=== PATIENT | male | born 1950 | race American Indian/Alaskan Native ===

== ENCOUNTER 2018-03-17 10:27 | Observation (INO) | payer MEDICARE, OTHER ==
--- NOTE | 2018-03-15 10:52 | Anesthesia Consultation ---
Anesthesia Consult and Med Hx Date of service: 03/15/18 - Airway Anesthetic Teeth Evaluation: Good ROM Head & Neck: Adequate Mental/Hyoid Distance: Adequate Mallampati Class: Class II Intubation Access Assessment: Probably Good - Pulmonary Exam CTA: Yes - Cardiac Exam Cardiac Exam: RRR - Pre-Operative Health Status ASA Pre-Surgery Classification: ASA2 Proposed Anesthetic Plan: General (GA with ETT- GERD poorly controlled) - Pulmonary Hx Smoking: No Hx Sleep Apnea: No (KYLEE PRE SCREEN HIGH RISK) - Cardiovascular System Hx Hypertension: Yes (X 15 YRS) - Central Nervous System Hx Back Pain: Yes
[2018-03-15 10:59] LABS: Basophils % (Auto) 0.4 % (0.0-1.8); Eosinophils # (Auto) 0.1 K/mm3 (0.0-0.4); Eosinophils % (Auto) 1.7 % (0.0-4.3); Hematocrit 38.4 % (35.5-45.6); Hemoglobin 13.1 gm/dl (11.8-15.2); Lymphocytes # (Auto) 1.7 K/mm3 (1.2-5.4); Lymphocytes % (Auto) 31.6 % (13.4-35.0); Mean Corpuscular HGB Conc 34 % (32-34); Mean Corpuscular Hemoglobin 32 pg (28-32); Mean Corpuscular Volume 94 fl (84-94); Monocytes # (Auto) 0.5 K/mm3 (0.0-0.8); Monocytes % (Auto) 9.4 % (0.0-7.3); Platelet Count 203 K/mm3 (140-440); Red Blood Count 4.08 M/mm3 (3.65-5.03); Red Cell Distribution Width 13.5 % (13.2-15.2)
[2018-03-15 11:09] LABS: Partial Thromboplastin Time 27.9 Sec. (24.2-36.6)
[2018-03-15 11:13] LABS: INR 0.95 (0.87-1.13)
[2018-03-15 11:18] LABS: Alanine Aminotransferase 18 units/L (7-56); Albumin 4.2 g/dL (3.9-5); BUN/Creatinine Ratio 12; Blood Urea Nitrogen 15 mg/dL (9-20); Calcium 9.6 mg/dL (8.4-10.2); Hemolysis Index 9
[~2018-03-17 10:27] MED LIST: GARAMYCIN/NS 80 MG/100 ML 100 ML IV SCH; LACTATED RINGERS 1,000 ML IV SCH; PEPCID IV NR; VANCOMYCIN PHARMACY TO DOSE IV SCH; VANCOMYCIN/NS 1 GM/250 ML 1 GM/250 ML BAG IV SCH; VERSED IV NR
[2018-03-17] MEDS ORDERED: NACL BACTERIOSTATIC INFILTRATI ONE (12:01)
[2018-03-17] MEDS ORDERED: VANCOMYCIN VIAL ONE (13:10)
[2018-03-17] MEDS ORDERED: GARAMYCIN ONE (13:11)
[2018-03-17] MEDS ORDERED: MARCAINE 0.5% 0 ML INFILTRATI ONE (13:11)
[2018-03-17] MEDS ORDERED: SUBLIMAZE ONE (13:11)
[2018-03-17] MEDS ORDERED: DIPRIVAN 10 MG/ML IV ONE (13:11)
[2018-03-17] MEDS ORDERED: XYLOCAINE MPF 2% ONE (13:11)
[2018-03-17] MEDS ORDERED: NEOSPORIN GU IR ONE ×2 (13:11→14:39)
[2018-03-17] MEDS ORDERED: NACL P/F VIAL (10 ML) 20 ML ONE (13:36)
[2018-03-17] MEDS ORDERED: ZEMURON IV ONE (13:44)
[2018-03-17] MEDS ORDERED: QUELICIN ONE (13:44)
[2018-03-17] MEDS ORDERED: VANCOMYCIN VIAL IRRIGATION ONE (14:22)
[2018-03-17] MEDS ORDERED: HYDROGEN PEROXIDE ONE (14:22)
[2018-03-17] MEDS ORDERED: HYDROGEN PEROXIDE IRRIGATION ONE (14:22)
[2018-03-17] MEDS ORDERED: GARAMYCIN IV ONE (14:22)
[2018-03-17] MEDS ORDERED: DILAUDID ONE ×2 (14:37→15:45)
[2018-03-17] MEDS ORDERED: DECADRON ONE (14:39)
[2018-03-17] MEDS ORDERED: ZOFRAN ONE (14:39)
[2018-03-17] MEDS ORDERED: NACL 0.9% IR ONE (14:39)
[2018-03-17] MEDS ORDERED: NARCAN 0.4 MG/1 ML IV PRN (15:18)
[2018-03-17] MEDS ORDERED: NORCO 5/325 PO PRN (15:18)
[2018-03-17] MEDS ORDERED: MORPHINE IV PRN (15:18)
[2018-03-17] MEDS ORDERED: ZOFRAN IV PRN ×2 (15:18→15:46)
--- NOTE | 2018-03-17 15:18 | Short Stay Summary ---
Short Stay Documentation Date of service: 03/17/18 - History H&P: obtained from office - Allergies and Medications Current Medications: Allergies No Known Allergies Allergy (Verified 03/05/18 14:15) Home Medications Medication Instructions Recorded Confirmed Last Taken Type Bicalutamide [Casodex] 50 mg PO DAILY 03/05/18 03/17/18 03/17/18 07:00 History Leuprolide Acetate [Eligard] 22.5 mg SQ [id number] 03/05/18 03/17/18 03/03/18 History Losartan [Cozaar] 50 mg PO QDAY 03/05/18 03/17/18 03/17/18 07:00 History NIFEdipine [Adalat cc] 30 mg PO DAILY 03/05/18 03/17/18 03/17/18 07:00 History Sulfamethoxazole/Trimethoprim 1 each PO BID 03/17/18 03/17/18 03/17/18 07:00 History [Bactrim DS TAB] Active Medications Famotidine (Pepcid) 20 mg IV PREOP NR Stop: 03/17/18 23:59 Last Admin: 03/17/18 12:15 Dose: 20 mg Gentamicin Sulfate/Sodium Chloride (Garamycin/Ns 80 Mg/100 Ml) 100 mls @ 200 mls/hr IV PREOP ARLET Vancomycin HCl (Vancomycin/Ns 1 Gm/250 Ml) 1 gm in 250 mls @ 166.667 mls/hr IV PREOP ARLET Stop: 03/17/18 23:59 Last Admin: 03/17/18 12:36 Dose: 166.667 mls/hr Lactated Ringer's (Lactated Ringers) 1,000 mls @ 100 mls/hr IV DIRECT ARLET Last Admin: 03/17/18 12:10 Dose: 100 mls/hr Midazolam HCl (Versed) 2 mg IV PREOP NR Stop: 03/17/18 23:59 - Brief post op/procedure progress note Date of procedure: 03/17/18 Pre-op diagnosis: mal fx ipp (leak), ED Post-op diagnosis: same Procedure: ipp (21 + 2cm RTE), scrotaplasty Anesthesia: GETA Surgeon: JOSIANE GOODE Medical Device: SOURAV POLLACK Estimated blood loss: minimal Pathology: list (scrotal skin, old ambicor) Specimen disposition: to lab Condition: stable - Hospital course Hospital course: post op info on chart pt has cipro & norco at home - Disposition Condition at discharge: Stable Disposition: DC-01 TO HOME OR SELFCARE Short Stay Discharge Plan Follow up with: PRANAY MERAZ MD [Primary Care Provider] - 7 Days
[2018-03-17] MEDS ORDERED: TORADOL ONE (15:45)
[2018-03-17] MEDS ORDERED: TORADOL IV PRN (15:46)
[2018-03-17] MEDS ORDERED: DEMEROL IV PRN (15:46)
[2018-03-17] MEDS ORDERED: DILAUDID IV PRN (15:46)
--- NOTE | 2018-03-17 15:49 | Post Anesthesia Evaluation ---
- Post Anesthesia Evaluation Patient Participated: Yes Airway Patent: Yes Stable Respiratory Function: Yes Nausea/Vomiting: No Temp > 96.8F: Yes Pain Manageable: Yes Adequeate Hydration: Yes Anesthesia Complications: No
--- NOTE | 2018-03-17 15:49 | Anesthesia Day of Surgery ---
Anesthesia Day of Surgery - Day of Surgery Patient Examined: Yes Patient H&P Reviewed: Yes Patient is NPO: Yes
[2018-03-17] MEDS ORDERED: LACTATED RINGERS 1,000 ML IV SCH (16:00)
--- NOTE | 2018-03-17 19:25 | Operative Report ---
PREOPERATIVE DIAGNOSES: Erectile dysfunction, malfunction of inflatable penile prosthesis (Ambicor). POSTOPERATIVE DIAGNOSES: Erectile dysfunction, malfunction of inflatable penile prosthesis (Ambicor), redundant scrotal skin. PROCEDURE: Removal of Ambicor penile prosthesis, insertion of inflatable penile prosthesis (CX 21 cm +2 cm rear tip extenders), scrotoplasty, Alis irrigation. SURGEON: Denis Gardiner MD PARKING MANAGER: Junaid Amador. ANESTHESIA: General. ESTIMATED BLOOD LOSS: Minimal. FLUIDS: Crystalloid. COMPLICATIONS: No complications. INDICATIONS: This patient is a 67-year-old gentleman known to my service with a history of prostate cancer status post perineal prostatectomy [place] [address] Ronald Crawford at [facility]. The patient had seen several physicians in the past. I have been following him over the last several years. He is presently on hormone therapy for prostate cancer. The patient had inflatable penile prosthesis placed (Ambicor type), was working well for 11 years and the patient had noted it stopped working. 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 Discussed the options. The patient wants to proceed with removal of Ambicor and replacement with a 3 piece device. DESCRIPTION OF PROCEDURE: The patient was taken to the operative suite, placed in a supine position. After adequate general anesthesia, the patient was prepped and draped in a sterile fashion. Junaid Amador was present throughout the procedure to help with surgical dissection. Ga catheter was placed on the operative field. A transscrotal incision was made with Bovie. [place] retractor was used for exposure. Dissection in the scrotum exposed the pump. No signs of infection; however, anaerobic and aerobic cultures were taken. Dissection was then taken to the corporal bodies, left side and the right side respectively. They were open. No signs of infection. The device was removed intact and the device was sent to the lab for ID confirmation. Measurements revealed a total of 23 cm; therefore, a 21 cm CX device was used, AMS device, with 2 cm rear tip extenders. Before placement of the device, a modified Alis irrigation was performed without difficulty. No signs of infection could be appreciated. A 100 mL reservoir was prepped and placed in the retropubic space via the right external ring. It was inflated with 100 mL of saline with minimal back pressure. The cylinders were placed in the corporal bodies with the aid of a Herberth needle. Also, of note, prior to touching the device, everyone on the surgical field changed the gloves. The cylinders were placed in the corporal bodies with the aid of a Herberth needle, adequate seating could be appreciated. Corporotomies were closed with 2-0 Vicryl in a running fashion. Insufflation revealed adequate erection, the reservoir and pump were connected with a quick-click connection device, again cycled with an excellent appearance. The pump was then placed in the dependent portion of the scrotum. Pursestring 2-0 Vicryl suture was placed on a running 2-0 Vicryl to close the dartos layer. Redundant scrotal skin was trimmed at the top and bottom. Skin closure with 3-0 Vicryl in interrupted fashion was performed. Collodion was placed, mummy wrap as well. The patient tolerated the procedure, was extubated and taken to recovery room. The patient has his antibiotics and pain pills, will be observed overnight and go home tomorrow. JOB# [id number] Tadeo/JESSE
--- NOTE | 2018-03-17 21:02 | Consultation ---
History of Present Illness - Reason for Consult Consult date: 03/17/18 Medical management Requesting physician: JOSIANE GOODE - History of Present Illness S/p repair of IPP leak and malfunctioning IPP. Had prostectomy in the past sec to Prostate cancer.Postop patient doing well.No sob erc. Past History Past Medical History: cancer (prostate), hyperthyroidism Past Surgical History: Other (Prostectomy and IPP placement) Social history: no significant social history, , lives with family, full code Family history: hypertension Medications and Allergies Allergies Allergy/AdvReac Type Severity Reaction Status Date / Time No Known Allergies Allergy Verified 03/05/18 14:15 Home Medications Medication Instructions Recorded Confirmed Last Taken Type Bicalutamide [Casodex] 50 mg PO DAILY 03/05/18 03/17/18 03/17/18 07:00 History Leuprolide Acetate [Eligard] 22.5 mg SQ [id number] 03/05/18 03/17/18 03/03/18 History Losartan [Cozaar] 50 mg PO QDAY 03/05/18 03/17/18 03/17/18 07:00 History NIFEdipine [Adalat cc] 30 mg PO DAILY 03/05/18 03/17/18 03/17/18 07:00 History Sulfamethoxazole/Trimethoprim 1 each PO BID 03/17/18 03/17/18 03/17/18 07:00 History [Bactrim DS TAB] Active Meds: Active Medications Acetaminophen/Hydrocodone Bitart ([place] 5/325) 2 each PO Q6H PRN PRN Reason: Pain, Moderate (4-6) Bicalutamide (Casodex) 50 mg PO DAILY ARLET Famotidine (Pepcid) 20 mg IV PREOP NR Stop: 03/17/18 23:59 Last Admin: 03/17/18 12:15 Dose: 20 mg Hydromorphone HCl (Dilaudid) 0.5 mg IV Q10MIN PRN PRN Reason: Pain , Severe (7-10) Stop: 03/18/18 06:00 Gentamicin Sulfate/Sodium Chloride (Garamycin/Ns 80 Mg/100 Ml) 100 mls @ 200 mls/hr IV PREOP ARLET Vancomycin HCl (Vancomycin/Ns 1 Gm/250 Ml) 1 gm in 250 mls @ 166.667 mls/hr IV PREOP ARLET Stop: 03/17/18 23:59 Last Admin: 03/17/18 12:36 Dose: 166.667 mls/hr Cefazolin Sodium (Ancef/Ns 1 Gm/50 Ml) 1 gm in 50 mls @ 100 mls/hr IV Q8H [facility]; Protocol Stop: 03/18/18 02:29 Lactated Ringer's (Lactated Ringers) 1,000 mls @ 100 mls/hr IV DIRECT ARLET Losartan Potassium (Cozaar) 50 mg PO QDAY ARLET Meperidine HCl (Demerol) 25 mg IV ONCE PRN PRN Reason: Shivering Midazolam HCl (Versed) 2 mg IV PREOP NR Stop: 03/17/18 23:59 Morphine Sulfate (Morphine) 2 mg IV Q4H PRN PRN Reason: Pain, Moderate (4-6) Naloxone HCl (Narcan 0.4 Mg/1 Ml) 0.1 mg IV Q2MIN PRN PRN Reason: Res Rate </= 8 or 02 SAT < 92% Nifedipine (Procardia Xl) 30 mg PO QDAY ARLET Ondansetron HCl (Zofran) 4 mg IV Q8H PRN PRN Reason: N/V unrelieved by Reglan Ondansetron HCl (Zofran) 4 mg IV ONCE PRN PRN Reason: Nausea And Vomiting Review of Systems All systems: negative Exam - Constitutional Vitals: Temp Pulse Resp BP Pulse Ox 97.3 F L 78 20 131/79 98 03/17/18 20:19 03/17/18 20:19 03/17/18 20:19 03/17/18 20:19 03/17/18 20:19 General appearance: Present: no acute distress, well-nourished - EENT Eyes: Present: PERRL ENT: hearing intact, clear oral mucosa - Neck Neck: Present: supple, normal ROM - Respiratory Respiratory effort: normal Respiratory: bilateral: CTA - Cardiovascular Heart Sounds: Present: S1 & S2. Absent: rub, click - Extremities Extremities: pulses symmetrical, No edema Peripheral Pulses: within normal limits - Abdominal General gastrointestinal: Present: soft, non-tender, non-distended, normal bowel sounds Male genitourinary: Present: normal - Integumentary Integumentary: Present: clear, warm, dry - Musculoskeletal Musculoskeletal: gait normal, strength equal bilaterally - Psychiatric Psychiatric: appropriate mood/affect, intact judgment & insight - Neurologic Neurologic: CNII-XII intact, moves all extremities Results - Labs CBC & Chem 7: 03/15/18 10:00 03/15/18 10:00 Assessment and Plan - Patient Problems (1) Status post surgery Current Visit: Yes Status: Acute Plan to address problem: Repair of Malfunctioning IPP and a leak (2) HTN (hypertension) Current Visit: Yes Status: Chronic Qualifiers: Hypertension type: essential hypertension Qualified Code(s): I10 - Essential (primary) hypertension Plan to address problem: Cont Losartan and Nifedipine (3) Prostate cancer Current Visit: Yes Status: Chronic Plan to address problem: Cont Casodex and Leuprolide as per schedule (4) DVT prophylaxis Current Visit: Yes Status: Acute Plan to address problem: On Scd's
[2018-03-17] MEDS: ANCEF/NS 1 GM/50 ML 1 GM/50 ML BAG IV SCH (21:17)
[2018-03-18] MEDS: ANCEF/NS 1 GM/50 ML 1 GM/50 ML BAG IV SCH (04:50)
[2018-03-18] MEDS ORDERED: CASODEX PO SCH (10:00)
[2018-03-18] MEDS ORDERED: COZAAR PO SCH (10:00)
[2018-03-18] MEDS ORDERED: NIFEDIPINE 30 MG PO SCH (10:00)
[2018-03-18] MEDS ORDERED: PROCARDIA XL PO SCH (10:00)
--- NOTE | 2018-03-18 12:27 | Progress Note ---
Assessment and Plan post ipp small bleeding incision after dressing removed pressure miguel out recheck Subjective Date of service: 03/18/18 Principal diagnosis: organic ED Objective - Constitutional Vitals: Vital Signs - 12hr 03/18/18 03/18/18 03/18/18 00:54 04:07 08:17 Temperature 98.1 F 98.1 F 98.1 F Pulse Rate 65 57 L 69 Respiratory 18 20 18 Rate Blood Pressure 122/73 113/63 124/67 O2 Sat by Pulse 96 98 93 Oximetry 03/18/18 11:00 Temperature Pulse Rate 70 Respiratory Rate Blood Pressure 124/67 O2 Sat by Pulse Oximetry General appearance: Present: no acute distress Extremities: no ischemia - Gastrointestinal General gastrointestinal: Present: soft, non-tender - Genitourinary Male genitourinary: symmetrical - Labs CBC & Chem 7: 03/15/18 10:00 03/15/18 10:00
--- NOTE | 2018-03-18 12:28 | Discharge Summary ---
Short Stay Discharge Plan Activity: other (no straining ) Weight Bearing Status: Full Weight Bearing Diet: low fat, low cholesterol, low salt Wound: open to air Follow up with: PRANAY MERAZ MD [Primary Care Provider] - 7 Days
[2018-03-18 12:51] VITALS: BP 128/62
--- NOTE | 2018-03-18 13:34 | Progress Note ---
Assessment and Plan no more heme voided x 2 Subjective Date of service: 03/18/18 Principal diagnosis: organic ED Objective - Constitutional Vitals: Vital Signs - 12hr 03/18/18 03/18/18 03/18/18 04:07 08:17 11:00 Temperature 98.1 F 98.1 F Pulse Rate 57 L 69 70 Respiratory 20 18 Rate Blood Pressure 113/63 124/67 124/67 O2 Sat by Pulse 98 93 Oximetry 03/18/18 12:20 Temperature 98.6 F Pulse Rate 69 Respiratory 18 Rate Blood Pressure 128/62 O2 Sat by Pulse 97 Oximetry - Labs CBC & Chem 7: 03/15/18 10:00 03/15/18 10:00
--- NOTE | 2018-03-18 22:44 | Progress Note ---
Assessment and Plan - Status post IPP repair of leaking and malfunctioning previously inserted IPP. - Had a history of prostate cancer with radical prostatectomy in the past Subjective Date of service: 03/18/18 Principal diagnosis: organic ED Interval history: No new complaints. Patient had repair of previous IPP)(implantable penile thoracentesis). Ga's catheter removed. Patient urinating adequately. Objective - Exam Narrative Exam: Constitutional: Well-nourished well-developed. In no distress Head: Normocephalic atraumatic Eyes: Pupils are equal round and reactive to light Nose: No enlarged turbinates, no septal deviation. Mouth: Moist mucous membranes. Neck: Supple no thyromegaly. No bruit. No JVD Heart: Regular rate and rhythm, S1-S2 abnormal. No rubs murmurs or gallop Lungs: Clear to auscultation bilaterally no rales or rhonchi Abdomen: Soft, nontender. Bowel sound are present. Extremities: No edema no cyanosis and no clubbing. Neuro: Alert oriented Oriented x3. No focal sensory or motor deficit. Skin: No rashes no hyperemic spots Genitourinary system: Dry dressing of the penile implant Psychiatry: Euthymic. Calm. - Constitutional Vitals: Vital Signs - 12hr 03/18/18 03/18/18 11:00 12:20 Temperature 98.6 F Pulse Rate 70 69 Respiratory 18 Rate Blood Pressure 124/67 128/62 O2 Sat by Pulse 97 Oximetry - Labs CBC & Chem 7: 03/15/18 10:00 03/15/18 10:00
== END 2018-03-18 13:20 | disposition home or self-care (01) ==
LOC: OR 10:27 → 3B-SURG 15:18 → INTOOBSV 15:18
PROVIDERS: ADMIT Urology; ATTEND Family Medicine
DX: N52.9 Male erectile dysfunction, unspecified (principal); I10 Essential (primary) hypertension; C61 Malignant neoplasm of prostate
CPT/HCPCS: 36415; 54416; 80053; 85025; 85610; 85730; 87075; 87116; 88300; 88305; 96365; 96367; 96375; C1813; G0378; J0330; J0690; J1100; J1170; J1580; J1885; J2405; J2704; J3010; J3370; J7120; 88302; J9999